=== PATIENT | female | born 1940 | race Caucasian/White ===

== ENCOUNTER → 2017-01-03 | Outpatient (CLI) | payer MEDICARE, BC | LOC: MC.RAD 09:59 | DX: Z12.31 Encounter for screening mammogram for malignant neoplasm of breast (principal) ==

== ENCOUNTER → 2018-01-04 | Outpatient (CLI) | payer MEDICARE, BC | LOC: MC.RAD 09:46 | DX: Z12.31 Encounter for screening mammogram for malignant neoplasm of breast (principal) ==

== ENCOUNTER → 2018-09-19 | Outpatient (CLI) | payer MEDICARE, BC | LOC: COL.VAS 09-13 09:45 | DX: R93.1 Abnormal findings on diagnostic imaging of heart and coronary circulation (principal); R05 Cough ==

== ENCOUNTER → 2018-12-05 | Outpatient (CLI) | payer MEDICARE, BC ==
[~2018-12-05] VITALS: Ht 160 cm; Wt 72.8 kg
[~2018-12-05] MED LIST: FOSAMAX 70MG TA70 MG; HCTZ 25MG TAB25 MG PO; NORVASC 5MG5 MG/TAB PO; PRILOSEC 20MG20 MG PO; ZOCOR 20MG20 MG PO; ZYRTEC 10MG10 MG PO
[2018-12-05 12:13] VITALS: BP 157/96; PULSE 104
--- NOTE | 2018-12-05 12:55 | NUR ---
Dr Levine into talk with pt after calling and talking to Dr Calvin. Procedure canceled. Dr Levine stated didnt meet criteria for biopsy. Pt to be reevaluated in 6-12 months with another ultrasound. Pt back to nurses holding area to get dressed and out to car per ambulation.
== END ==
LOC: COL.RAD 08:30
DX: E04.1 Nontoxic single thyroid nodule (principal)

== ENCOUNTER 2019-01-14 09:01 | Outpatient (CLI) | payer MEDICARE, BC ==
[~2019-01-14] VITALS: Ht 160.1 cm; Wt 71.7 kg
[~2019-01-14 09:01] MED LIST changes: +FOSAMAX 35MG35 MG PO; -FOSAMAX 70MG TA70 MG
[2019-01-14 09:56] LABS: HEMATOCRIT 43.1 % (37.0-47.0); MEAN CELL VOLUME 84 fl (80.0-100.0); MEAN CORPUSCULAR HEMOGLOBIN 29 pg (27.0-31.0); MEAN CORPUSCULAR HGB CONC 35 g/dl (33.0-37.0); MEAN PLATELET VOLUME 9.7 fl (7.4-10.4); PLATELET COUNT 246 K/mm3 (130-400); RED BLOOD COUNT 5.11 M/mm3 (4.10-5.30); REDCELL DISTRIBUTION WIDTH-CV 12.8 % (11.5-14.5)
[2019-01-14 10:06] LABS: PROTHROMBIN TIME 11.8 SECONDS (9.7-12.8)
[2019-01-14 10:08] LABS: CALCIUM 9.6 mg/dL (8.4-10.2); CREATININE, serum 0.8 (0.52-1.25); POTASSIUM 3.5 mmol/L (3.4-5.0)
[2019-01-14 10:20] VITALS: BP 136/95; PULSE 76; TEMP 98.4
[2019-01-14] MEDS ORDERED: FLONASEALLERGY NS (10:28)
[2019-01-14] MEDS ORDERED: MASON NATURAL2000 IU PO (10:29)
[2019-01-14 11:10] VITALS: BP 128/79; PULSE 66
[2019-01-14 11:15] VITALS: BP 131/78; PULSE 67
[2019-01-14 11:30] VITALS: BP 130/76; PULSE 62
[2019-01-14 11:45] VITALS: BP 141/74; PULSE 60
[2019-01-14 12:00] VITALS: BP 138/79; PULSE 58
--- NOTE | 2019-01-14 12:35 | NUR ---
Discharge instructions given to pt.Pt verbalizes understanding.INT removed,catheter tip intact.pt escorted out via wheelchair by this nurse.
== END 2019-01-14 14:00 | disposition home or self-care (01) ==
LOC: COL.RAD 09:01
PROVIDERS: Internal Medicine Cardiovascular Disease
DX: I25.3 Aneurysm of heart (principal); I10 Essential (primary) hypertension; K21.9 Gastro-esophageal reflux disease without esophagitis
CPT/HCPCS: J2704

== ENCOUNTER → 2019-02-13 | Outpatient (CLI) | payer MEDICARE, BC ==
[~2019-02-13] MED LIST changes: +FLONASEALLERGY NS; +MASON NATURAL2000 IU PO
== END ==
LOC: MC.RAD 09:35
DX: Z12.31 Encounter for screening mammogram for malignant neoplasm of breast (principal)

== ENCOUNTER → 2020-02-16 | Outpatient (CLI) | payer MEDICARE, BC | LOC: MC.RAD 10:55 | DX: Z12.31 Encounter for screening mammogram for malignant neoplasm of breast (principal) ==

== ENCOUNTER → 2021-01-24 | Outpatient (CLI) | payer MEDICARE, BC ==
[~2021-01-24] VITALS: Ht 160 cm; Wt 71.2 kg
[~2021-01-24] MED LIST changes: +HCTZ12.5TAB PO; +MICRO-K 10 EXT10 MEQ; +SINGULAIR 110 MG/TAB PO; +VESICARE 5MG5 MG PO
[2021-01-24 09:39] VITALS: BP 165/75; PULSE 74
[2021-01-24 10:19] VITALS: BP 165/94; PULSE 68
== END ==
LOC: COL.RAD 08:58
DX: E04.1 Nontoxic single thyroid nodule (principal)
CPT/HCPCS: 32140

== ENCOUNTER → 2021-02-17 | Outpatient (CLI) | payer MEDICARE, BC | LOC: MC.RAD 10:32 | DX: Z12.31 Encounter for screening mammogram for malignant neoplasm of breast (principal) ==

== ENCOUNTER → 2022-02-17 | Outpatient (CLI) | payer MEDICARE, BC | LOC: MC.RAD 09:55 | DX: Z12.31 Encounter for screening mammogram for malignant neoplasm of breast (principal) ==

== ENCOUNTER → 2024-02-22 | Outpatient (CLI) | payer MEDICARE | LOC: MC.RAD 10:02 | DX: Z12.31 Encounter for screening mammogram for malignant neoplasm of breast (principal) ==